=== PATIENT | female | born 1975 | race Caucasian/White ===

== ENCOUNTER 2018-08-31 10:17 | Day surgery (SDC) | payer BC ==
[2018-08-31 10:39] LABS: Specific Gravity 1.015 (1.005-1.030)
[2018-08-31] MEDS ORDERED: CYCLOPENTOLATE 1% OPTH 2 ML ONE (10:54)
[2018-08-31] MEDS ORDERED: PHENYLEPHRINE 10% OPTH 5ML ONE (10:55)
[2018-08-31] MEDS ORDERED: PHENYLEPHRINE 10% OPTH 5ML OPTH ONE ×2 (10:55→11:00)
[2018-08-31] MEDS ORDERED: CYCLOPENTOLATE 1% OPTH 2 ML OPTH ONE ×2 (10:55→11:00)
[2018-08-31] MEDS ORDERED: NA CHLORIDE 0.9% 500 ML ONE (10:55)
[2018-08-31] MEDS ORDERED: NS 0.9% VIAL 10 ML ONE (10:58)
[2018-08-31] MEDS: TETRACAINE HCL 0.5% 4ML OPTH ONE ×2 (11:05→12:31)
[2018-08-31] MEDS: LIDOCAINE 2% MPF 5 ML VIAL ONE ×2 (11:05→12:32)
[2018-08-31] MEDS: BUPIVACAINE 0.25% PF 10 ML VIAL ONE ×2 (11:06→12:32)
[2018-08-31] MEDS: DUOVISC 1 KIT OPTH ONE ×2 (12:06→12:46)
[2018-08-31] MEDS: BALANCED SALT IRRIG PLAIN 500 ML BTL IRR ONE ×2 (12:06→12:46)
[2018-08-31] MEDS: EPINEPHRINE/PF 1 MG/ML AMP ONE ×2 (12:07→12:46)
[2018-08-31] MEDS: MOXIFLOXACIN HCL 10 DROPS/ML **OR USE OPTH ONE ×2 (12:07→12:46)
[2018-08-31] MEDS ORDERED: LIDOCAINE 2% MPF 5 ML VIAL ONE (12:26)
[2018-08-31] MEDS ORDERED: PROPOFOL 200 MG/20 ML VIAL IV ONE (12:26)
--- NOTE | 2018-08-31 13:16 | P.BOP ---
Preoperative diagnosis: Posterior subcapsular cataract OS Postoperative diagnosis: Same Primary procedure: Phacoemulsification with IOL OS Estimated blood loss: None Anesthesia: Local (Subtenon's infusion with anesthesia for cataract surgery) Complications: None Implants: ZCB00 +25.0 Transferred to: Other (Day surgery) Condition: Good
--- NOTE | 2018-09-01 00:07 | OP ---
Date of Procedure: 08/31/2018 Surgeon: Lyly Handy MD Anesthesiologist: Sanjay Pettit CRNA; Dez Hodges CRNA; and Efraín Lira MD. Preoperative Diagnosis: Posterior subcapsular cataract, left eye. Operation Performed: Phacoemulsification with intraocular lens implant, left eye. Anesthesia: Per cataract surgery. Complications: None. Description Of Procedure: In day surgery, the patient was prepped with Betadine and draped. A conjunctival incision was made in the inferior nasal quadrant with Radha scissors. A sub-Tenon block consisting of a 1:1 mixture of 2% Xylocaine and 0.25% bupivacaine was placed through the conjunctival incision with a blunt cannula. A Honan balloon was placed over the eye and the patient was transferred to the operating room. In the operating room the patient was prepped and draped in the usual sterile fashion for ophthalmic surgery. A lid speculum was placed in the left eye. Two paracentesis sites were made superiorly and inferiorly in the limbal cornea. Viscoat was placed in the anterior chamber and a crescent blade was used to make a corneal groove and tunnel, and a keratome was used to enter the anterior chamber. Provisc was placed in the anterior chamber and a 360 degree capsulotomy was performed with a cystitome. The lens was hydrodissected with BSS and rotated freely. The lens was removed with a stop and chop technique. 0.45 phaco CDE was used to remove the lens. Residual cortex was removed with the irrigation and aspiration. Provisc was placed in the capsular bag. A ZCB00 +25.0 lens was placed in the capsular bag without complications. Irrigation and aspiration were used to remove residual viscoelastic. The paracentesis sites were hydrated with BSS. The wound and paracentesis sites were inspected and found to be watertight. Vigamox 0.07 cc was placed intracamerally at the end of the procedure. The eye was irrigated with balanced salt solution. The eye was patched with a soft cotton patch and Pastor metal shield. The patient was returned to day surgery in good condition. Comments: Discharge Instructions: Ms. Green is discharged to home in good condition and is to follow up with Dr. Handy in the morning. NOHEMI/PACO Voice ID: [id number] Report ID: [id number] MTDD
== END 2018-08-31 13:49 | disposition home or self-care (01) ==
LOC: OR 10:17
PROVIDERS: ATTEND Ophthalmology Retina Specialist
PROC: 08RK3JZ Replacement of Left Lens with Synthetic Substitute, Percutaneous Approach (ICD-10-PCS; principal; 2018-08-31 11:00)
DX: H25.12 Age-related nuclear cataract, left eye (principal); H25.042 Posterior subcapsular polar age-related cataract, left eye
CPT/HCPCS: 81025; J0171; J2704